=== PATIENT | male | born 2000 | race Caucasian/White ===

== ENCOUNTER 2018-04-12 19:27 | Emergency (ER) | payer OTHER ==
[~2018-04-12] VITALS: Ht 170.2 cm; Wt 72.7 kg
[2018-04-12] MEDS ORDERED: SOMA350T PO (20:30)
[2018-04-12 20:37] VITALS: BP 128/71
== END 2018-04-12 20:59 | disposition home or self-care (01) ==
LOC: M ED 19:27
DX: S39.012A Strain of muscle, fascia and tendon of lower back, initial encounter (principal); X50.9XXA Other and unspecified overexertion or strenuous movements or postures, initial encounter; Y92.89 Other specified places as the place of occurrence of the external cause; Y99.0 Civilian activity done for income or pay